=== PATIENT | female | born 2000 | race Caucasian/White ===

== ENCOUNTER → 2018-10-28 | Outpatient (CLI) | payer MEDICAID ==
--- NOTE | 2018-10-29 15:15 | MR ---
EXAMINATION TYPE: MR wrist LT wo con DATE OF EXAM: 10/28/2018 COMPARISON: HISTORY: Pain in left wrist post fall Standard multiplanar, multisequence MRI departmental protocol Multiplanar, multisequence images of the left wrist were acquired. FINDINGS: The carpal bones are intact. I see no bone edema. Intercarpal joint spaces are fairly massiel l. Scaphoid is intact. Collateral ligaments appear intact. Flexor and extensor tendons of the wrist a ppear intact. There is some edema in the soft tissues over the posterior aspect of the mid carpus. Th is area measures 16 x 8 x 16 mm. The triangular cartilage appears intact. IMPRESSION: Posterior soft tissue edema. No fracture seen. No evidence of any arthritic disease.
== END | disposition home or self-care (01) ==
LOC: RADMRIMAIN 18:34
PROVIDERS: ATTEND Orthopaedic Surgery
DX: M79.89 Other specified soft tissue disorders (principal); M25.532 Pain in left wrist